=== PATIENT | male | born 2000 | race African-American/Black ===

== ENCOUNTER 2020-12-21 01:47 | Emergency (ER) | payer OTHER ==
[~2020-12-21] VITALS: Ht 167.6 cm; Wt 63.5 kg
[2020-12-21 01:55] VITALS: BP 157/100; Ht 167.6 cm; Wt 63.5 kg
[2020-12-21 02:33] LABS: BASOPHILS 0.5 % (0-2); HEMATOCRIT 45.9 % (42.0-54.0); HEMOGLOBIN 15.3 g/dL (13.5-17.5); MCHC 33.3 g/dL (31.0-37.0); MONOCYTES 9.9 % (2-11); NEUTROPHILS 46.6 % (40-80); PLATELET COUNT 200 10x3/uL (130-400); RBC 5.47 10x6/uL (4.20-6.10); RDW 14.2 % (11.5-14.5); WBC 5.8 10x3/uL (4.8-10.8)
[2020-12-21 02:48] LABS: ANION GAP 9.4 mmol/L (8-16); CALCIUM 9.1 mg/dL (8.5-10.1); CARBON DIOXIDE 31.5 mmol/L (21.0-32.0); CREATININE - SERUM 1.3 mg/dL (0.6-1.3); POTASSIUM - SERUM 3.9 mmol/L (3.5-5.1)
[2020-12-21 02:51] LABS: BACTERIA FEW HPF (<MOD); BILIRUBIN NEGATIVE (NEGATIVE); GRANULAR CAST 2 LPF (0-1); KETONE NEGATIVE mg/dL (< 1+); NITRITE NEGATIVE (NEGATIVE); PH 6.5 (5.0-8.0); SQUAMOUS EPITHELIAL <1 HPF (0-4); UROBILINOGEN 3 mg/dL (< 2); WHITE CELLS - URINE 3 HPF (0-1)
[2020-12-21 03:02] LABS: ALBUMIN 4.2 g/dL (3.4-5.0); BILIRUBIN - TOTAL 0.45 mg/dL (0.2-1.3); C-REACTIVE PROTEIN 0.6 mg/dL (0.0-0.9); PROTEIN - SERUM 9.4 g/dL (6.4-8.2); THYROID STIMULATING HORMONE 1.59 uIU/mL (0.36-3.74)
[2020-12-21 03:03] LABS: UDS - AMPHET NEGATIVE QUAL (NEGATIVE); UDS - BARB NEGATIVE QUAL (NEGATIVE); UDS - BENZO NEGATIVE QUAL (NEGATIVE); UDS - COCAINE NEGATIVE QUAL (NEGATIVE); UDS - OPIATE NEGATIVE QUAL (NEGATIVE); UDS - PCP NEGATIVE QUAL (NEGATIVE); UDS - THC NEGATIVE QUAL (NEGATIVE)
== END 2020-12-21 04:00 | disposition home or self-care (01) ==
LOC: D.ER 01:47
PROVIDERS: Family Medicine
DX: R10.9 Unspecified abdominal pain (principal); R51.9 Headache, unspecified; R07.9 Chest pain, unspecified; R06.02 Shortness of breath; M25.511 Pain in right shoulder; R11.2 Nausea with vomiting, unspecified